=== PATIENT | female | born 1990 | race Caucasian/White ===

== ENCOUNTER 2019-11-05 12:53 | Emergency (ER) | payer SELFPAY ==
[2019-11-05] MEDS ORDERED: IBUPROFEN 400 MG TAB ONE (13:34)
[2019-11-05] MEDS ORDERED: IBUPROFEN 200 MG TAB PO ONE (13:34)
--- NOTE | 2019-11-05 13:46 | ER ---
Nurse's Notes [facility] Name: Trina Dobson Age: 29 yrs Sex: Female : 1990 Arrival Date: 11/05/2019 Time: 12:56 Bed 13 Private MD: Diagnosis: Influenza due to unidentified influenza virus Presentation: 11/05 13:10 Presenting complaint: Patient states: fever, chills, body aches since last night. iw Transition of care: patient was not received from another setting of care. Onset of symptoms was November 04, 2016. Risk Assessment: Do you want to hurt yourself or someone else? Patient reports no desire to harm self or others. Initial Sepsis Screen: Does the patient meet any 2 criteria? No. Patient's initial sepsis screen is negative. Does the patient have a suspected source of infection? No. Patient's initial sepsis screen is negative. Care prior to arrival: None. 13:10 Method Of Arrival: Ambulatory iw 13:10 Acuity: JANE 4 iw CARE NAVIGATOR: 13:12 LMP 10/29/2019 iw Historical: - Allergies: 13:12 No Known Allergies; iw - Home Meds: 13:12 None [Active]; iw - PMHx: 13:12 None; iw - PSHx: 13:12 None; iw - Immunization history:: Adult Immunizations not up to date. - Social history:: Smoking status: Patient/guardian denies using tobacco. - Ebola Screening: : Patient negative for fever greater than or equal to 101.5 degrees Fahrenheit, and additional compatible Ebola Virus Disease symptoms Patient denies exposure to infectious person Patient denies travel to an Ebola-affected area in the 21 days before illness onset No symptoms or risks identified at this time. Screenin:25 Abuse screen: Denies threats or abuse. Denies injuries from another. Nutritional ca1 screening: No deficits noted. Tuberculosis screening: No symptoms or risk factors identified. Fall Risk None identified. Assessment: 13:25 General: Appears in no apparent distress. comfortable, Behavior is calm, cooperative, ca1 appropriate for age, Reports chills for 12-24 hours, fever for 12-24 hours. 13:25 Pain: Complains of pain in all over. Neuro: Level of Consciousness is awake, alert, ca1 obeys commands, Oriented to person, place, time, situation, Appropriate for age. Cardiovascular: Heart tones S1 S2 present Capillary refill < 3 seconds Patient's skin is warm and dry. Respiratory: Airway is patent Respiratory effort is even, unlabored, Respiratory pattern is regular, symmetrical, Breath sounds are clear bilaterally. GI: Abdomen is round non-distended, Bowel sounds present X 4 quads. Abd is soft and non tender X 4 quads. : No deficits noted. No signs and/or symptoms were reported regarding the genitourinary system. Derm: Skin is intact, is healthy with good turgor, Skin is pink, warm \T\ dry. Musculoskeletal: Circulation, motion, and sensation intact. Capillary refill < 3 seconds, Range of motion: intact in all extremities. 13:25 EENT: No deficits noted. No signs and/or symptoms were reported regarding the EENT ca1 system. 14:06 Reassessment: Patient appears in no apparent distress at this time. Patient is alert, ca1 oriented x 3, equal unlabored respirations, skin warm/dry/pink. Vital Signs: 13:12 BP 97 / 62; Pulse 108; Resp 16 S; Temp 99.6(O); Pulse Ox 100% on R/A; Weight 65.77 kg; iw Height 5 ft. 10 in. (177.80 cm); Pain 8/10; 14:06 BP 101 / 65; Pulse 102; Resp 17 S; Pulse Ox 100% on R/A; ca1 13:12 Body Mass Index 20.81 (65.77 kg, 177.80 cm) iw ED Course: 12:56 Patient arrived in ED. rg4 12:59 Gaudencio Torres [facility]C [facility] la1 12:59 Emir Woo MD is Attending Physician. la1 13:11 Triage completed. iw 13:12 Arm band placed on. iw 13:14 Flu and/or RSV swab sent to lab. iw 13:20 Claudia Ibrahim, RN is Primary Nurse. ca1 13:25 Patient has correct armband on for positive identification. Bed in low position. Call ca1 light in reach. Side rails up X 1. Pulse ox on. NIBP on. Warm blanket given. 14:07 No provider procedures requiring assistance completed. Patient did not have IV access ca1 during this emergency room visit. Administered Medications: 13:34 Drug: Motrin 600 mg Route: PO; ca1 13:50 Follow up: Response: No adverse reaction ca1 13:44 Drug: Tamiflu 75 mg Route: PO; ca1 14:01 Follow up: Response: No adverse reaction ca1 Outcome: 13:46 Discharge ordered by MD. mcmullen 14:07 Discharged to home ambulatory. ca1 14:07 Condition: stable 14:07 Discharge instructions given to patient, Instructed on discharge instructions, follow up and referral plans. medication usage, Demonstrated understanding of instructions, follow-up care, medications, Prescriptions given X 2. 14:09 Patient left the ED. ca1 Signatures: Linnette Vance, RN RN iw Gaudencio Torres, STEAMTABLE WORKER-C STEAMTABLE WORKER-Cla1 Alicja Padgett rg4 Claudia Ibrahim RN RN ca1 Corrections: (The following items were deleted from the chart) 13:29 13:25 General: Appears in no apparent distress. comfortable, Behavior is calm, ca1 cooperative, appropriate for age, ca1 13:37 13:25 General: Appears in no apparent distress. comfortable, Behavior is calm, ca1 cooperative, appropriate for age, Reports chills for 12-24 hours, fever for ca1 13:37 13:25 Respiratory: Airway is patent Respiratory effort is even, unlabored, Respiratory ca1 pattern is regular, symmetrical, Breath sounds are clear bilaterally. ca1 13:37 13:25 Respiratory: Reports cough that is ca1 ca1 13:37 13:25 EENT: Reports nasal congestion nasal discharge that is watery ca1 ca1
[2019-11-05] MEDS ORDERED: OSELTAMIVIR 75 MG CAP ONE (13:47)
--- NOTE | 2019-11-05 13:47 | EDPHYS ---
Physician Documentation [facility] Name: Trina Dobson Age: 29 yrs Sex: Female : 1990 Arrival Date: 11/05/2019 Time: 12:56 Bed 13 Private MD: ED Physician Emir Woo HPI: 11/05 13:42 This 29 yrs old Female presents to ER via Ambulatory with complaints of Flu la1 Symptoms. 13:42 The patient or guardian reports cough, flu symptoms, low-grade fever, myalgias, no la1 appetite. Onset: The symptoms/episode began/occurred last night. Associated signs and symptoms: Pertinent positives: fever, nausea, Pertinent negatives: sore throat, vomiting. Severity of symptoms: At their worst the symptoms were moderate in the emergency department the symptoms are unchanged. Pt reports onset of muscle aches, fever, nausea since last night. 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 - Social history:: Smoking status: Patient/guardian denies using tobacco. - Ebola Screening: : Patient negative for fever greater than or equal to 101.5 degrees Fahrenheit, and additional compatible Ebola Virus Disease symptoms Patient denies exposure to infectious person Patient denies travel to an Ebola-affected area in the 21 days before illness onset No symptoms or risks identified at this time. ROS: 13:43 Constitutional: + for fever Eyes: Negative for injury, pain, redness, and discharge, la1 ENT: Negative for injury, pain, and discharge, Neck: Negative for injury, pain, and swelling, Cardiovascular: Negative for chest pain, palpitations, and edema, Respiratory: + cough Abdomen/GI: Negative for abdominal pain, nausea, vomiting, diarrhea, and constipation, Back: Negative for injury and pain, : Negative for injury, bleeding, discharge, and swelling, MS/Extremity: + myalgias Neuro: Negative for headache, weakness, numbness, tingling, and seizure. Exam: 13:43 Constitutional: This is a well developed, well nourished patient who is awake, alert, la1 and in no acute distress. Head/Face: Normocephalic, atraumatic. Eyes: Pupils equal round and reactive to light, extra-ocular motions intact. Periorbital areas with no swelling, redness, or edema. ENT: Nares patent. No nasal discharge, no septal abnormalities noted. Tympanic membranes are normal and external auditory canals are clear. Oropharynx with no redness, swelling, or masses, exudates, or evidence of obstruction, uvula midline. Mucous membranes moist. Neck: Trachea midline, no thyromegaly or masses palpated, and no cervical lymphadenopathy. Supple, full range of motion without nuchal rigidity, or vertebral point tenderness. No Meningismus. Chest/axilla: Normal chest wall appearance and motion. Nontender with no deformity. No lesions are appreciated. Cardiovascular: Regular rate and rhythm with a normal S1 and S2. No gallops, murmurs, or rubs. Normal PMI, no JVD. No pulse deficits. Respiratory: Lungs have equal breath sounds bilaterally, clear to auscultation No rales, rhonchi or wheezes noted. No increased work of breathing, no retractions or nasal flaring. Abdomen/GI: Soft, non-tender, with normal bowel sounds. No distension or tympany. No guarding or rebound. No evidence of tenderness throughout. MS/ Extremity: Pulses equal, no cyanosis. Neurovascular intact. Full, normal range of motion. Neuro: Awake and alert, GCS 15, oriented to person, place, time, and situation. Normal gait. Vital Signs: 13:12 BP 97 / 62; Pulse 108; Resp 16 S; Temp 99.6(O); Pulse Ox 100% on R/A; Weight 65.77 kg; iw Height 5 ft. 10 in. (177.80 cm); Pain 8/10; 14:06 BP 101 / 65; Pulse 102; Resp 17 S; Pulse Ox 100% on R/A; ca1 13:12 Body Mass Index 20.81 (65.77 kg, 177.80 cm) iw MDM: 13:22 Patient medically screened. la1 13:44 Data reviewed: vital signs, nurses notes, lab test result(s), and as a result, I will la1 discharge patient. Data interpreted: Pulse oximetry: on room air is 100 %. Interpretation: normal. Counseling: I had a detailed discussion with the patient and/or guardian regarding: the historical points, exam findings, and any diagnostic results supporting the discharge/admit diagnosis, lab results. ED course: Pt flu test negative but symptoms just began less than 12 hours ago and pt clinically appears to have the flu. . 11/05 13:10 Order name: Flu; Complete Time: 13:37 iw Administered Medications: 13:34 Drug: Motrin 600 mg Route: PO; ca1 13:50 Follow up: Response: No adverse reaction ca1 13:44 Drug: Tamiflu 75 mg Route: PO; ca1 14:01 Follow up: Response: No adverse reaction ca1 Disposition: 15:38 Co-signature as Attending Physician, Emir Woo MD I agree with the assessment and kdr plan of care. Disposition: 11/05/19 13:46 Discharged to Home. Impression: Influenza due to unidentified influenza virus. - Condition is Stable. - Discharge Instructions: Fever, Adult, Influenza, Adult. - Prescriptions for Zofran 4 mg Oral Tablet - take 1 tablet by ORAL route every 12 hours As needed; 20 tablet. Tamiflu 75 mg Oral Capsule - take 1 tablet by ORAL route every 12 hours for 5 days; 9 tablet. - Medication Reconciliation Form, Thank You Letter form. - Follow up: Private Physician; When: 2 - 3 days; Reason: Recheck today's complaints, Re-evaluation by your physician. Follow up: Emergency Department; When: As needed; Reason: Worsening of condition. - Problem is new. - Symptoms are unchanged. Signatures: Dispatcher [employer] EDMS Emir Woo MD MD [facility] Linnette Vance RN RN iw Gaudencio Torres, ELECTRONICS MANUFACTURER-C ELECTRONICS MANUFACTURER-Cla1 Claudia Ibrahim RN RN ca1 Corrections: (The following items were deleted from the chart) 14:09 13:46 11/05/2019 13:46 Discharged to Home. Impression: Influenza due to unidentified ca1 influenza virus. Condition is Stable. Forms are Medication Reconciliation Form, Thank You Letter, Antibiotic Education, Prescription Opioid Use. Follow up: Private Physician; When: 2 - 3 days; Reason: Recheck today's complaints, Re-evaluation by your physician. Follow up: Emergency Department; When: As needed; Reason: Worsening of condition. Problem is new. Symptoms are unchanged. la1
[2019-11-05 14:14] VITALS: TEMP 99.6; O2SAT 100
[2019-11-05 14:16] VITALS: BP 101/65
== END 2019-11-05 14:09 | disposition home or self-care (01) ==
LOC: ER 12:53
DX: J10.1 Influenza due to other identified influenza virus with other respiratory manifestations (principal)
CPT/HCPCS: 87804; 99284

== ENCOUNTER 2022-08-11 15:37 | Emergency (ER) | payer BC ==
[2022-08-11 16:38] LABS: Absolute Lymphocytes (CBC) 2.9 K/uL (0.7-4.9); Hematocrit 39.2 % (36.0-45.0); Lymphocytes % 39.8 % (15.3-44.8); MCV 85.4 fL (80-100); MPV 7.9 fL (7.6-11.3); RBC Red Blood Cell Count 4.59 M/uL (3.86-4.86)
[2022-08-11 16:41] LABS: Protime INR 1.02
[2022-08-11] MEDS ORDERED: KETOROLAC 30 MG/ML INJ ONE (16:48)
[2022-08-11 16:49] LABS: Potassium 3.6 mmol/L (3.5-5.1)
--- NOTE | 2022-08-11 17:49 | RAD REPORT ---
EXAM DESCRIPTION: US - Extrem Venous W Compress Deandre - 08/11/2022 5:40 pm CLINICAL HISTORY: PAIN COMPARISON: No comparisons TECHNIQUE: Real-time sonographic evaluation of the lower extremity deep venous systems was performed using color Doppler, grayscale, and compression. FINDINGS: Bilateral lower extremities. Normal compressibility, flow augmentation, phasic flow and spontaneous flow is identified in both the left and right lower extremity deep venous systems. No intraluminal filling defects seen. IMPRESSION: No DVT in either lower extremity.
--- NOTE | 2022-08-11 17:51 | RAD REPORT ---
EXAM DESCRIPTION: US - Lower Extremity Arterial Bilat - 08/11/2022 5:40 pm CLINICAL HISTORY: Leg pain COMPARISON: None FINDINGS: Color Doppler, grayscale, and spectral analysis was performed. The common femoral, superficial femoral and popliteal arteries bilaterally demonstrate triphasic wave forms The posterior tibial and dorsalis pedis arteries demonstrate biphasic or triphasic waveforms kwan bauman. IMPRESSION: No arterial flow limiting stenosis within either lower extremity.
--- NOTE | 2022-08-11 18:04 | EDPHYS ---
Physician Documentation [facility] Name: Trina Dobson Age: 32 yrs Sex: Female : 1990 Arrival Date: 08/11/2022 Time: 15:38 Bed 4 Private MD: Luke Figueroa E ED Physician Emir Woo HPI: 08/12 00:16 This 32 yrs old Female presents to ER via Ambulatory with complaints of leg bruising, kb possible blood clot. 00:16 The patient presents with pain, that is acute. The complaints affect the left leg and kb right leg. Context: The problem was sustained at home, resulted from an unknown cause, the patient can fully bear weight, the patient is able to ambulate. Onset: The symptoms/episode began/occurred 2 month(s) ago. Modifying factors: The symptoms are alleviated by nothing. the symptoms are aggravated by nothing. Associated signs and symptoms: The patient has no apparent associated signs or symptoms. Treatment prior to arrival includes: no previous treatment. Severity of symptoms: At their worst the symptoms were moderate, in the emergency department the symptoms are unchanged. The patient has not experienced similar symptoms in the past. The patient has been recently seen by a physician:. Pt reports pain to bilateral lower extremities that started about 2 months ago. States her PCP prescribed medication for RLS to try, but it hasn't helped. Today woke up with bruising to left calf without known injury so she was concerned. Called her pcp and was told to come to ER for evaluation because she could not order a stat US. . 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 - Social history:: Smoking status: Patient denies any tobacco usage or history of. ROS: 08/12 00:15 Constitutional: Negative for fever, chills, and weight loss. kb MS/extremity: Positive for pain, of the right leg and left leg. Skin: Positive for ecchymosis, of the left calf. All other systems are negative. Exam: 00:15 Constitutional: This is a well developed, well nourished patient who is awake, alert, kb and in no acute distress. Head/Face: Normocephalic, atraumatic. ENT: Moist Mucous membranes Cardiovascular: Regular rate and rhythm with a normal S1 and S2. No gallops, murmurs, or rubs. No pulse deficits. Respiratory: Respirations even and unlabored. No increased work of breathing. Talking in full sentences Abdomen/GI: Soft, non-tender. No distention MS/ Extremity: Pulses equal, no cyanosis. Neurovascular intact. Full, normal range of motion. Neuro: Awake and alert, GCS 15, oriented to person, place, time, and situation. Moves all extremities. Normal gait. Psych: Awake, alert, with orientation to person, place and time. Behavior, mood, and affect are within normal limits. 00:15 Skin: ecchymosis noted to left calf. Vital Signs: 08/11 16:12 BP 122 / 74; Pulse 81; Resp 20; Temp 98.3; Pulse Ox 100% ; Weight 63.5 kg; Height 5 ft. kb3 10 in. (177.80 cm); Pain 0/10; 16:36 BP 123 / 81; Pulse 62; Resp 18; Pulse Ox 100% on R/A; Pain 9/10; mb9 17:25 BP 138 / 75; Pulse 63; Resp 16; Pulse Ox 100% on R/A; Pain 5/10; mb9 16:12 Body Mass Index 20.09 (63.50 kg, 177.80 cm) kb3 MDM: 16:10 Patient medically screened. kb 08/12 00:15 Data reviewed: vital signs, nurses notes. Data interpreted: Pulse oximetry: on room air kb is 100 %. Interpretation: normal. Counseling: I had a detailed discussion with the patient and/or guardian regarding: the historical points, exam findings, and any diagnostic results supporting the discharge/admit diagnosis, lab results, radiology results, the need for outpatient follow up, a family practitioner, to return to the emergency department if symptoms worsen or persist or if there are any questions or concerns that arise at home. 08/11 16:11 Order name: CBC with Diff kb 08/11 16:11 Order name: Protime (+inr) kb 08/11 16:11 Order name: Ptt, Activated kb 08/11 16:11 Order name: Basic Metabolic Panel kb 08/11 16:40 Order name: CBC with Automated Diff; Complete Time: 16:40 EDMS 08/11 16:42 Order name: Protime (+INR); Complete Time: 16:43 EDMS 08/11 16:11 Order name: US Extremity Venous W Compression Deandre kb 08/11 16:11 Order name: US LE Arterial Bilateral kb 08/11 16:14 Order name: IV Saline Lock; Complete Time: 16:37 mb9 08/11 16:42 Order name: PTT, Activated Partial Thromb; Complete Time: 16:43 EDMS 08/11 16:49 Order name: Basic Metabolic Panel; Complete Time: 16:49 EDMS 08/11 17:50 Order name: US; Complete Time: 17:51 EDMS 08/11 17:52 Order name: US; Complete Time: 17:52 EDMS Administered Medications: 08/11 16:53 Drug: Ketorolac 15 mg Route: IVP; Site: left antecubital; mb9 17:20 Follow up: Response: Pain is decreased mb9 Disposition Summary: 08/11/22 18:04 Discharge Ordered Location: Home kb Condition: Stable kb Diagnosis - Pain in left leg kb - Pain in right leg kb Followup: kb - With: Emergency Department - When: As needed - Reason: Worsening of condition Followup: kb - With: Private Physician - When: 2 - 3 days - Reason: Recheck today's complaints, Continuance of care, Re-evaluation by your physician Discharge Instructions: - Discharge Summary Sheet kb - Musculoskeletal Pain kb Forms: - Medication Reconciliation Form kb - Thank You Letter kb - Antibiotic Education kb - Prescription Opioid Use kb Signatures: Dispatcher [employer] EDBrittany Saha FNP-C FNP-Leanne Chambers, RN RN kb3 Verónica Agrawal RN RN mb9
--- NOTE | 2022-08-11 18:04 | ER ---
Nurse's Notes [facility] Name: Trina Dobson Age: 32 yrs Sex: Female : 1990 Arrival Date: 08/11/2022 Time: 15:38 Bed 4 Private MD: Luke Figueroa E Diagnosis: Pain in left leg;Pain in right leg Presentation: 08/11 16:12 Chief complaint: Patient states: Pt reports bilateral leg pain x several months, woke kb3 up with spontaneous left calf bruising this morning. Coronavirus screen: Vaccine status: Patient reports receiving the 2nd dose of the covid vaccine. Client denies travel out of the [place] in the last 14 days. Ebola Screen: Patient negative for fever greater than or equal to 101.5 degrees Fahrenheit, and additional compatible Ebola Virus Disease symptoms Patient denies exposure to infectious person. Patient denies travel to an Ebola-affected area in the 21 days before illness onset. No symptoms or risks identified at this time. Initial Sepsis Screen: Does the patient meet any 2 criteria? No. Patient's initial sepsis screen is negative. Does the patient have a suspected source of infection? No. Patient's initial sepsis screen is negative. Risk Assessment: Do you want to hurt yourself or someone else? Patient reports no desire to harm self or others. Onset of symptoms was August 11, 2022 at 06:00. 16:12 Method Of Arrival: Ambulatory 3 16:12 Acuity: JANE 3 kb3 Triage Assessment: 16:13 General: Appears in no apparent distress. comfortable, Behavior is calm, cooperative. kb3 Pain: Denies pain. 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 - Social history:: Smoking status: Patient denies any tobacco usage or history of. Screenin:45 Abuse screen: Denies threats or abuse. mb9 15:45 Nutritional screening: No deficits noted. Tuberculosis screening: No symptoms or risk mb9 factors identified. Fall Risk None identified. Assessment: 16:32 General: Appears in no apparent distress. Behavior is calm, cooperative, appropriate mb9 for age. Pain: Complains of pain in back of left leg and left leg Pain currently is 9 out of 10 on a pain scale. Quality of pain is described as aching, crampy, Pain began Pain started suddenly this morning. Is intermittent, Aggravated by sitting for long periods of time. Neuro: Level of Consciousness is awake, alert, obeys commands, Oriented to person, place, time, situation, Appropriate for age Offset Press Operator Apprentice are equal bilaterally Gait is steady. Cardiovascular: Heart tones S1 S2 present Rhythm is regular. Respiratory: Breath sounds are clear bilaterally. GI: Reports nausea. : No signs and/or symptoms were reported regarding the genitourinary system. EENT: No signs and/or symptoms were reported regarding the EENT system. Derm: Skin is pink, warm \T\ dry. Musculoskeletal: Range of motion: intact in all extremities, Tenderness present in back of left leg and calf. Reports waking up this morning with new bruises on left calf. 17:23 Pain: Complains of pain in left leg and back of left leg Pain currently is 5 out of 10 mb9 on a pain scale. Quality of pain is described as aching, numb, Is intermittent. Neuro: Level of Consciousness is awake, alert, obeys commands, Oriented to person, place, time, situation, Appropriate for age. Respiratory: Breath sounds are clear bilaterally. Derm: Skin is pink, warm \T\ dry. Bruising that is black/purple noted on the left calf.. Musculoskeletal: Tenderness present in left leg and back of left leg. Vital Signs: 16:12 BP 122 / 74; Pulse 81; Resp 20; Temp 98.3; Pulse Ox 100% ; Weight 63.5 kg; Height 5 ft. kb3 10 in. (177.80 cm); Pain 0/10; 16:36 BP 123 / 81; Pulse 62; Resp 18; Pulse Ox 100% on R/A; Pain 9/10; mb9 17:25 BP 138 / 75; Pulse 63; Resp 16; Pulse Ox 100% on R/A; Pain 5/10; mb9 16:12 Body Mass Index 20.09 (63.50 kg, 177.80 cm) kb3 ED Course: 15:38 Patient arrived in ED. am2 15:39 Luke Figueroa MD is Private Physician. am2 15:55 Britt[facility] Childs [facility]C [facility]. kb 15:55 Emir Woo MD is Attending Physician. kb 16:13 Triage completed. kb3 16:14 Verónica Agrawal, RN is Primary Nurse. mb9 16:14 Arm band placed on. mb9 16:14 Bed in low position. Call light in reach. Side rails up X 1. mb9 16:37 Basic Metabolic Panel Sent. mb9 16:37 Protime (+inr) Sent. mb9 16:37 Ptt, Activated Sent. mb9 16:37 CBC with Diff Sent. mb9 16:37 Inserted saline lock: 20 gauge in left antecubital area, using aseptic technique. Blood mb9 collected. 18:00 No provider procedures requiring assistance completed. mb9 18:23 IV discontinued, intact, bleeding controlled, No redness/swelling at site. Pressure mb9 dressing applied. Administered Medications: 16:53 Drug: Ketorolac 15 mg Route: IVP; Site: left antecubital; mb9 17:20 Follow up: Response: Pain is decreased mb9 Medication: 15:45 VIS not applicable for this client. mb9 Outcome: 18:04 Discharge ordered by . kb 18:23 Discharged to home ambulatory. mb9 18:23 Condition: stable 18:23 Discharge instructions given to patient, Instructed on discharge instructions, Demonstrated understanding of instructions, follow-up care, medications. 18:26 Patient left the ED. mb9 Signatures: Brittany hCilds FNP-C FNP-Adore Smith am2 Leanne Colorado, RN RN kb3 Verónica Agrawal, RN RN mb9
[2022-08-12 07:58] VITALS: TEMP 98.3; O2SAT 100
[2022-08-12 08:00] VITALS: BP 138/75
== END 2022-08-11 18:26 | disposition home or self-care (01) ==
LOC: ER 15:37
DX: M79.605 Pain in left leg (principal); M79.604 Pain in right leg; F41.9 Anxiety disorder, unspecified
CPT/HCPCS: 36415; 80048; 85025; 85610; 85730; 93925; 93970; 96374; 99283

== ENCOUNTER 2022-12-20 06:36 | Day surgery (SDC) | payer BC ==
[2022-12-20] MEDS ORDERED: Ringers Lactate 1,000 ML IV ONE (06:59)
[2022-12-20] MEDS ORDERED: EPINEPHRINE/PF 1 MG/ML AMP ONE (07:04)
[2022-12-20] MEDS ORDERED: propofoL 200 MG/20 ML VIAL IV ONE ×2 (07:27→08:21)
[2022-12-20] MEDS ORDERED: ONDANSETRON 4 MG/2 ML VIAL ONE (07:41)
[2022-12-20 11:46] VITALS: O2SAT 100
[2022-12-20 12:43] VITALS: BP 91/58
[2022-12-20 12:46] VITALS: TEMP 97.6
== END 2022-12-20 09:47 | disposition home or self-care (01) ==
LOC: OR 06:36
PROVIDERS: ATTEND Internal Medicine Gastroenterology
PROC: 0DJD8ZZ Inspection of Lower Intestinal Tract, Via Natural or Artificial Opening Endoscopic (ICD-10-PCS; principal; 2022-12-20 07:30)
PROC: 0DB68ZX Excision of Stomach, Via Natural or Artificial Opening Endoscopic, Diagnostic (ICD-10-PCS; 2022-12-20 07:30)
DX: K92.1 Melena (principal); K59.00 Constipation, unspecified; K64.4 Residual hemorrhoidal skin tags; K64.8 Other hemorrhoids; R10.13 Epigastric pain; K29.50 Unspecified chronic gastritis without bleeding; K29.60 Other gastritis without bleeding
CPT/HCPCS: 36415; 88312; 84703; 88305; 45378; 43239; J2704 ×2; J7120; J2405; J0171

== ENCOUNTER 2024-02-05 07:00 | Day surgery (SDC) | payer BC ==
[2024-02-05] MEDS ORDERED: SOD FERRIC GLUC COMPLX/SUCROSE 125 MG in NA CHLORIDE 0.9% 100 ML IV ONE (07:30)
[2024-02-05 08:39] VITALS: O2SAT 100; BMI 21.2
[2024-02-05 10:42] VITALS: BP 133/59; TEMP 98.3
== END 2024-02-05 08:50 | disposition home or self-care (01) ==
LOC: DS 07:00
PROVIDERS: ATTEND Internal Medicine Gastroenterology
DX: D50.9 Iron deficiency anemia, unspecified (principal)
CPT/HCPCS: 96365; J2916

== ENCOUNTER 2024-03-07 09:27 | Day surgery (SDC) | payer BC ==
[2024-03-05 15:47] LABS: Anion Gap 9.8 mEq/L (5.0-15.0); Potassium 3.8 mEq/L (3.5-5.1)
--- NOTE | 2024-03-06 16:44 | EKG ---
Test Date: 2024-03-05 Test Time: 13:03:07 Cornice Upholsterer: SIENNA MEASUREMENT RESULTS: Intervals: Rate: 68 MO: 132 QRSD: 116 QT: 392 QTc: 416 Rentz: P: 77 MO: 132 QRS: 68 T: 63 INTERPRETIVE STATEMENTS: Normal sinus rhythm Incomplete right bundle branch block Borderline ECG No previous ECG available for comparison Electronically Signed On 03-06-24 16:41:55 CDT by Tripp Middleton
[2024-03-07] MEDS: Ringers Lactate 1,000 ML IV ONE (10:05)
[2024-03-07] MEDS ORDERED: propofoL 200 MG/20 ML VIAL IV ONE ×2 (12:16)
[2024-03-07] MEDS ORDERED: LIDOCAINE 1% MPF 5 ML VIAL ONE (12:16)
[2024-03-07 14:39] VITALS: BP 116/68; TEMP 97.5; O2SAT 99
== END 2024-03-07 13:57 | disposition home or self-care (01) ==
LOC: OR 09:27
PROVIDERS: ATTEND Surgery
PROC: 0DB68ZX Excision of Stomach, Via Natural or Artificial Opening Endoscopic, Diagnostic (ICD-10-PCS; 2024-03-07)
PROC: 0DBH8ZX Excision of Cecum, Via Natural or Artificial Opening Endoscopic, Diagnostic (ICD-10-PCS; 2024-03-07)
PROC: 0DBN8ZX Excision of Sigmoid Colon, Via Natural or Artificial Opening Endoscopic, Diagnostic (ICD-10-PCS; 2024-03-07)
PROC: 0DB98ZX Excision of Duodenum, Via Natural or Artificial Opening Endoscopic, Diagnostic (ICD-10-PCS; principal; 2024-03-07 11:30)
PROC: 0DB78ZX Excision of Stomach, Pylorus, Via Natural or Artificial Opening Endoscopic, Diagnostic (ICD-10-PCS; 2024-03-07 11:30)
DX: K29.50 Unspecified chronic gastritis without bleeding (principal); R10.13 Epigastric pain; K21.9 Gastro-esophageal reflux disease without esophagitis; K64.1 Second degree hemorrhoids; K64.8 Other hemorrhoids; K64.4 Residual hemorrhoidal skin tags; K62.4 Stenosis of anus and rectum; Z12.11 Encounter for screening for malignant neoplasm of colon
CPT/HCPCS: 43239; 45380; 93005; 80048; 36415 ×2; 88312; 84703; 88305; J2704 ×2; J2001; J7120